=== PATIENT | male | born 1975 | race Caucasian/White ===

== ENCOUNTER 2017-05-22 13:25 | Emergency (ER) | payer OTHER ==
--- NOTE | 2017-05-22 13:29 | PDOC ---
History of Present Illness - General Chief Complaint: Injury Stated Complaint: SWELLING TO RIGHT FOOT Time Seen by Provider: 05/22/17 13:28 History Source: Patient Exam Limitations: No Limitations - History of Present Illness Initial Comments: 05/22/17 13:29 This patient is a 42 yo M with no significant past medical history who presents to the emergency department with a complaint of right foot pain and swelling. Patient states that he has had severe pain with ambulation. Pt states that [place] park with [place] yesterday. He tripped and slid. His toes were caught and his ankle hyperextended Park officials responded, applying ice and telling him to elevate it. Pt states that he elevated his ankle once he got home, took Motrin last night ( which helped minimally) He currently has pain over his instep, no radiation to the heel or ankle Pain is 8/10 Associated with swelling Worse with ambulating or palpation of his foot PMH: denies PSH: cholecystectomy Meds: denies ALL: NKDA Social: denies drug use GENERAL/CONSTITUTIONAL: No: fever, chills, weakness, loss of appetite. MUSCULOSKELETAL: Yes: right foot pain and swwelling No: back pain, neck pain, joint pain, muscle swelling or pain SKIN AND BREASTS: No: lesions, pallor, rash or easy bruising. NEUROLOGIC: No: headache, vertigo, paresthesias, weakness ENDOCRINE: No: unexplained weight gain or loss HEMATOLOGIC/LYMPHATIC: No: anemia, easy bleeding, swelling nodes. GENERAL: The patient is in no acute distress. EXTREMITIES: Ankles non tender (? Swollen) No proximal fibular tenderness Foot swelling Tender over all metatarsals 2+ DP, 2+ PT Foot warm Brisk cap refill rological deficits. MUSCULOSKELETAL: Back non-tender to palpation, no CVA tenderness SKIN: Warm, Dry, normal turgor, no rashes or lesions noted. 05/22/17 13:37 Past History - Past Medical History Allergies/Adverse Reactions: Allergies Allergy/AdvReac Type Severity Reaction Status Date / Time No Known Allergies Allergy Unverified 05/22/17 13:30 Home Medications: Ambulatory Orders Ibuprofen [Motrin -] 600 mg PO TID PRN #21 tablet 05/22/17 Procedures - Splinting Splint Location: Right: Foot Pre-Proc Neuro Vasc Exam: normal Hand-Made Type: orthoglass Splint Type: Yes: Short Leg Post-Proc Neuro Vasc Exam: normal Taco Bandage: yes Complications: No Medical Decision Making - Medical Decision Making 05/22/17 13:54 Injury to right foot yesterday Exam concerning for mid foot fractures Will do: Xray Motrin Will re assess 05/22/17 15:44 x ray read as negative by radiology Pt has a lot of pain and difficulty ambulating Will place in posterior splint ? Occult mid foot injury Will discharge to home Follow up with ortho next week Avoid re injuring foot 05/22/17 15:45 *DC/Admit/Observation/Transfer Diagnosis at time of Disposition: Right foot sprain Qualifiers: Encounter type: initial encounter Qualified Code(s): S93.601A - Unspecified sprain of right foot, initial encounter - Discharge Dispostion Disposition: HOME Condition at time of disposition: Stable Admit: No - Prescriptions Prescriptions: Ibuprofen [Motrin -] 600 mg PO TID PRN #21 tablet PRN Reason: Pain - Referrals Referrals: Jorge Gracia MD [Staff Physician] - - Patient Instructions Printed Discharge Instructions: DI for Foot Sprain, DI for Foot Pain Additional Instructions: Mr Del Real Thank you for coming in to the ER Please avoid placing pressure on your foot Please follow up with the Orthopedic doctor in 2-3 days Please take motrin for pain Elevate your foot Avoid re injuring your foot Return to the ER for any other concerns or complaints Splint can be removed if it is too tight and causes increased pain in your foot (or if you notice the foot is cool, change in sensation, color change) - Post Discharge Activity Work/School Note: Back to Work
[2017-05-22] MEDS ORDERED: IBUPROFEN 600 MG TABLET (FP) PO ONE ×2 (13:33→13:41)
[2017-05-22 13:39] VITALS: BP 123/80; PULSE 87; TEMP 98.8; BMI 34.4
== END 2017-05-22 16:58 | disposition home or self-care (01) ==
LOC: FER 13:25
PROC: 2W3QX1Z Immobilization of Right Lower Leg using Splint (ICD-10-PCS; principal; 2017-05-22)
DX: S93.601A Unspecified sprain of right foot, initial encounter (principal); X58.XXXA Exposure to other specified factors, initial encounter; Y93.89 Activity, other specified; Y92.9 Unspecified place or not applicable
CPT/HCPCS: 73610-TC-RT; 73630-TC-RT; 99281-25

== ENCOUNTER 2017-07-21 15:37 | Emergency (ER) | payer OTHER ==
[2017-07-21 16:03] VITALS: BP 126/70; PULSE 99; BMI 33.6
[2017-07-21] MEDS ORDERED: predniSONE 20 MG TABLET (UD) PO ONE (17:31)
[2017-07-21] MEDS ORDERED: RANITIDINE HCL 150 MG TABLET (FP) PO ONE (17:31)
[2017-07-21] MEDS ORDERED: diphenhydrAMINE HCL 25 MG CAPSULE (FP) PO ONE ×2 (17:31→17:36)
[2017-07-21] MEDS ORDERED: ACETAMINOPHEN 500 MG TABLET (FP) PO ONE (17:32)
[2017-07-21] MEDS ORDERED: RANITIDINE HCL 150 MG TABLET (FP) ONE (17:36)
[2017-07-21] MEDS ORDERED: ACETAMINOPHEN 500 MG TABLET (FP) ONE (17:36)
[2017-07-21] MEDS ORDERED: predniSONE 20 MG TABLET (UD) ONE (17:36)
--- NOTE | 2017-07-21 17:36 | PDOC ---
History of Present Illness - General Chief Complaint: Allergic Reaction Stated Complaint: RASH Time Seen by Provider: 07/21/17 17:11 History Source: Patient Exam Limitations: No Limitations - History of Present Illness Initial Comments: 07/21/17 17:38 Chief complaint: Sudden onset of hives, with chest tightness that started suddenly, severe headache X 5 days History of present illness: Patient is a 42-year-old male with no significant medical history here today with his due to sudden onset of hives that began at approximately 3 PM today 30 minutes after eating a pork chop in his home. Patient reports that the hives spread quickly from arms to torso legs and on his way here patient felt chest tightness with no difficulty swallowing. Patient denies ever having any episodes like this in the past after eating pork chop. Patient denies any new spices, or any new cosmetic products for hair or body or any new clothing or new medications. Rash according to patient and has lessened since arrival here had photos in her phone rash is less raised. She denies any chest tightness or difficulty swallowing presently. Patient also reporting having headache that started on Thursday left occipital area that has persisted daily. Patient reports this as "being the worst headache ever, that wakes being up from a sleep ". Pt denies any nasal congestion, sinus tenderness, cough, nausea vomiting or diarrhea, dizziness, change in vision, or fever. Patient denies any sick contacts or recent travel. Patient reports that headache and left occipital area is presently a 7 out of 10 throbbing in nature. He denies any neck pain or any injuries. Timing/Duration: changing over time Severity: moderate (rash ), severe (headache left occipital ) Associated Symptoms: reports: headaches (daily since 07/17/17 left occipital wakes him from sleep "worse headache ever" ), other (chest tightness) Past History - Past Medical History Allergies/Adverse Reactions: Allergies Allergy/AdvReac Type Severity Reaction Status Date / Time No Known Allergies Allergy Unverified 05/22/17 13:30 Home Medications: Ambulatory Orders Epinephrine (Epi-Pen 0.3MG) [Epipen 0.3MG -] 0.3 mg IM ASDIR PRN #2 pens Prednisone [Deltasone -] 40 mg PO DAILY #8 tablet 07/21/17 Ranitidine [Zantac -] 150 mg PO BID #9 tablet 07/21/17 COPD: No - Surgical History Cholecystectomy: Yes - Suicide/Smoking/Psychosocial Hx Smoking History: Never smoked Hx Alcohol Use: No Drug/Substance Use Hx: No Substance Use Type: None Review of Systems - Review of Systems Able to Perform ROS?: Yes Constitutional: No: Symptoms Reported HEENTM: No: Symptoms Reported Respiratory: No: Symptoms reported Cardiac (ROS): Yes: Chest Tightness (prior to arrival ) ABD/GI: No: Symptoms Reported : No: Symptoms Reported Musculoskeletal: No: Symptoms Reported Integumentary: Yes: Pruritus, Rash (hives generalized ) Neurological: Yes: Headache (left occipital since 07/17/17 "worse headache ever " ) *Physical Exam - Vital Signs Last Vital Signs Temp Pulse Resp BP Pulse Ox 99 H 20 126/70 98 07/21/17 15:55 07/21/17 15:55 07/21/17 15:55 07/21/17 15:55 - Physical Exam General Appearance: Yes: Appropriately Dressed HEENT: positive: EOMI, ROSENDO, Normal ENT Inspection Neck: negative: Lymphadenopathy (R), Lymphadenopathy (L) Respiratory/Chest: positive: Lungs Clear, Normal Breath Sounds. negative: Chest Tender, Respiratory Distress Cardiovascular: positive: Regular Rhythm, Regular Rate, S1, S2 Integumentary: positive: Hives (arms, legs, torso has lessened since arrival here ( had photos rash had been more raised) ) Neurologic: positive: angular developer II-XII NML intact, Fully Oriented, Alert, Normal Response, Responsive, Finger to Nose. negative: Respond to painful stimul Medical Decision Making - Medical Decision Making 07/21/17 17:43 Patient is a 42-year-old male with no significant medical history here today with his due to sudden onset of hives that began at approximately 3 PM today 30 minutes after eating a pork chop in his home. Patient reports that the hives spread quickly from arms to torso legs and on his way here patient felt chest tightness with no difficulty swallowing. Patient denies ever having any episodes like this in the past after eating pork chop. Patient denies any new spices, or any new cosmetic products for hair or body or any new clothing or new medications. Rash according to patient and has lessened since arrival here had photos in her phone rash is less raised. She denies any chest tightness or difficulty swallowing presently. Patient also reporting having headache that started on Thursday left occipital area that has persisted daily. Patient reports this as "being the worst headache ever, that wakes being up from a sleep ". Pt denies any nasal congestion, sinus tenderness, cough, nausea vomiting or diarrhea, dizziness, change in vision, or fever. Patient denies any sick contacts or recent travel. Patient reports that headache and left occipital area is presently a 7 out of 10 throbbing in nature. He denies any neck pain or any injuries. Allergic reaction questionable to food Headache left occipital r/o intracranial abnormality PLAN: prednisone 40 mg po now than daily for following 4 days zantac 150mg po now than bid for following 4 days benadryl 25 mg po now acetaminophen [address] of head without contrast no intracranial pathology noted per Dr. Vasquez 07/21/17 18:37 feeling much better, headaches has resolved, no chest tightness, difficulty breathing or swallowing, rash has resolved *DC/Admit/Observation/Transfer Diagnosis at time of Disposition: Allergic reaction to food Qualifiers: Encounter type: initial encounter Qualified Code(s): T78.1XXA - Other adverse food reactions, not elsewhere classified, initial encounter; T78.1XXA - Other adverse food reactions, not elsewhere classified, initial encounter Headache Qualifiers: Headache type: unspecified Headache chronicity pattern: unspecified pattern Intractability: not intractable Qualified Code(s): R51 - Headache; R51 - Headache - Discharge Dispostion Disposition: HOME Condition at time of disposition: Stable - Prescriptions Prescriptions: Prednisone [Deltasone -] 40 mg PO DAILY #8 tablet Epinephrine (Epi-Pen 0.3MG) [Epipen 0.3MG -] 0.3 mg IM ASDIR PRN #2 pens PRN Reason: Shortness Of Breath Ranitidine [Zantac -] 150 mg PO BID #9 tablet - Patient Instructions Additional Instructions: Take Diphenhydramine (Benadryl)that she may purchase [id number] as directed by civil engineering professional for itchiness Return to emergency room if any difficulty breathing or swallowing or worsening headache or any other symptoms develop Follow-up with your primary care provider within the next few days for further evaluation You may take acetaminophen as directed by civil engineering professional for headache Patient voiced understanding of discharge instructions and all questions were answered Thank you for choosing [facility] emergency room for her medical needs today
== END 2017-07-21 18:44 | disposition home or self-care (01) ==
LOC: JERFT 15:37
DX: L50.0 Allergic urticaria (principal); R51 Headache; T78.40XA Allergy, unspecified, initial encounter; X58.XXXA Exposure to other specified factors, initial encounter
CPT/HCPCS: 70450-TC; 99281-25

== ENCOUNTER 2024-07-25 05:33 | Day surgery (SDC) | payer OTHER ==
[2024-07-21 13:16] VITALS: BMI 34.4
[2024-07-25 08:42] LABS: INR 1.06 (0.83-1.09); PROTHROMBIN TIME (PATIENT) 12.2 SEC (9.7-13.0)
[2024-07-25 08:50] LABS: BASO % 0.3 % (0-2.0); EOS % 1.2 % (0-4.5); HEMATOCRIT 41.2 % (35.4-49); LYMPH % 26.3 % (8-40); MEAN CELL VOLUME 79.3 fl (80-96); MEAN PLT VOLUME 8.8 fl (7.5-11.1); MONO % 7.5 % (3.8-10.2); NEUT % 64.7 % (42.8-82.8); PLATELET COUNT 209 10^3/uL (134-434); RDW 14.5 % (11.9-15.9)
[2024-07-25] MEDS: SODIUM CHLORIDE 500 ML IV ONE (10:05)
[2024-07-25] MEDS ORDERED: MIDAZOLAM HCL 2 MG/2 ML SINGLE DOSE VIAL ONE (10:11)
[2024-07-25] MEDS ORDERED: FENTANYL CITRATE/PF 50 MCG/ML VIAL ONE (10:11)
[2024-07-25] MEDS: FENTANYL CITRATE/PF 50 MCG/ML VIAL IVPUSH ONE (10:37)
[2024-07-25] MEDS: MIDAZOLAM HCL 2 MG/2 ML SINGLE DOSE VIAL IVPUSH ONE (10:37)
[2024-07-25 11:48] VITALS: RESP 20
[2024-07-25] MEDS ORDERED: SODIUM CHLORIDE 500 ML IV SCH (12:30)
[2024-07-25 14:11] VITALS: TEMP 97.8
[2024-07-25 14:13] VITALS: BP 125/66; PULSE 65
== END 2024-07-25 14:16 | disposition home or self-care (01) ==
LOC: JRADIR 05:33
PROVIDERS: ATTEND Internal Medicine Hematology & Oncology
PROC: 02HV33Z Insertion of Infusion Device into Superior Vena Cava, Percutaneous Approach (ICD-10-PCS; principal; 2024-07-25)
PROC: B518ZZA Fluoroscopy of Superior Vena Cava, Guidance (ICD-10-PCS; 2024-07-25)
DX: C18.2 Malignant neoplasm of ascending colon (principal)
CPT/HCPCS: 36561; C1788; 36415; 85025; 85610

== ENCOUNTER 2024-07-27 10:47 | Day surgery (SDC) | payer OTHER ==
[2024-07-27] MEDS: LIDOCAINE 2.5%/PRILOCAINE 2.5% 30 GRAM TUBE TP ONE (11:00)
[2024-07-27] MEDS: SODIUM CHLORIDE 250 ML IV ONE (11:15)
[2024-07-27 11:18] LABS: BASO % 0.3 % (0-2.0); EOS % 1.2 % (0-4.5); HEMATOCRIT 42.3 % (35.4-49); HEMOGLOBIN 14.5 GM/dL (11.7-16.9); LYMPH % 26.7 % (8-40); MCH 27.1 pg (25.7-33.7); MCHC 34.3 g/dl (32.0-35.9); MEAN PLT VOLUME 8.9 fl (7.5-11.1); MONO % 8.2 % (3.8-10.2); NEUT % 63.6 % (42.8-82.8); PLATELET COUNT 220 10^3/uL (134-434); RBC 5.35 M/mm3 (4.00-5.60); RDW 14.6 % (11.9-15.9); WHITE BLOOD COUNT 8.7 K/mm3 (4.0-10.0)
[2024-07-27 11:47] LABS: CHLORIDE 107 mmol/L (98-107); POTASSIUM 3.8 mmol/L (3.5-5.1); SODIUM 141 mmol/L (136-145)
[2024-07-27 11:49] LABS: CALCIUM 9.6 mg/dL (8.5-10.1)
[2024-07-27 11:50] LABS: ANION GAP 4 mmol/L (4-13); BLOOD UREA NITROGEN 18.6 mg/dL (7-18); CO2 30 mmol/L (21-32); GLUCOSE,RANDOM 103 mg/dL (74-106); MAGNESIUM 2.2 mg/dL (1.8-2.4)
[2024-07-27 11:52] LABS: CREATININE 0.9 mg/dL (0.55-1.3); SGOT/AST 22 U/L (15-37); SGPT/ALT 42 U/L (13-61)
[2024-07-27 11:55] LABS: TOT PROT 7.9 g/dl (6.4-8.2)
[2024-07-27] MEDS: DEXAMETHASONE SODIUM PHOSPHATE 10 MG in DEXTROSE 5%-WATER - 50 ML IVPB ONE (11:55)
[2024-07-27 11:56] LABS: ALK PHOS 98 U/L (45-117)
[2024-07-27 12:00] LABS: BILIRUBIN,TOTAL 0.5 mg/dL (0.2-1)
[2024-07-27] MEDS: PALONOSETRON HCL 0.25 MG/5 ML VIAL IVPUSH ONE (12:10)
[2024-07-27] MEDS: WATER IVPB ONE ×2 (12:22→12:37)
[2024-07-27] MEDS: DEXTROSE 5% IVPB ONE ×2 (12:22→12:37)
[2024-07-27] MEDS: DIPHENHYDRAMINE IVPB ONE (12:22)
[2024-07-27] MEDS: LEUCOVORIN CALCIUM IVPB ONE (12:37)
[2024-07-27] MEDS: FLUOROURACIL 1,000 MG/20 ML VIAL IVPUSH ONE (14:50)
[2024-07-27] MEDS: FLUOROURACIL CP ONE (14:53)
[2024-07-27] MEDS: PORTA CATH FLUSH 10 ML IVPUSH PRN (14:53)
[2024-07-27] MEDS: SODIUM CHLORIDE CP ONE (14:53)
[2024-07-27 17:21] VITALS: BP 113/71; PULSE 76; RESP 20; TEMP 98.6
== END 2024-07-27 15:30 | disposition home or self-care (01) ==
LOC: JONCCHEMO 10:47 → J7W 10:52 → JONCCHEMO 15:30
PROVIDERS: ATTEND Internal Medicine Hematology & Oncology
PROC: 3E04305 Introduction of Other Antineoplastic into Central Vein, Percutaneous Approach (ICD-10-PCS; principal; 2024-07-27)
PROC: 3E0433Z Introduction of Anti-inflammatory into Central Vein, Percutaneous Approach (ICD-10-PCS; 2024-07-27)
DX: Z51.11 Encounter for antineoplastic chemotherapy (principal); C18.9 Malignant neoplasm of colon, unspecified
CPT/HCPCS: 36415; 80053; 83735; 85025; 96365; 96375; 96413; 96417; G0498; J9263

== ENCOUNTER 2024-08-10 10:32 | Day surgery (SDC) | payer OTHER ==
[2024-08-10] MEDS: PORTA CATH FLUSH 10 ML IVPUSH PRN (11:00)
[2024-08-10] MEDS: SODIUM CHLORIDE 250 ML IV ONE (11:15)
[2024-08-10 12:02] LABS: BASO % 0.5 % (0-2.0); EOS % 2.2 % (0-4.5); HEMATOCRIT 39.4 % (35.4-49); HEMOGLOBIN 13.7 GM/dL (11.7-16.9); LYMPH % 30.5 % (8-40); MCH 27.1 pg (25.7-33.7); MCHC 34.8 g/dl (32.0-35.9); MEAN CELL VOLUME 77.8 fl (80-96); MEAN PLT VOLUME 8.2 fl (7.5-11.1); MONO % 12.8 % (3.8-10.2); PLATELET COUNT 173 10^3/uL (134-434); RBC 5.06 M/mm3 (4.00-5.60); RDW 14.5 % (11.9-15.9); WHITE BLOOD COUNT 4.8 K/mm3 (4.0-10.0)
[2024-08-10 12:09] LABS: CHLORIDE 107 mmol/L (98-107); POTASSIUM 3.4 mmol/L (3.5-5.1); SODIUM 139 mmol/L (136-145)
[2024-08-10 12:10] LABS: CALCIUM 9.4 mg/dL (8.5-10.1)
[2024-08-10 12:11] LABS: ALBUMIN 3.6 g/dl (3.4-5.0); ANION GAP 6 mmol/L (4-13); BLOOD UREA NITROGEN 10.7 mg/dL (7-18); CO2 26 mmol/L (21-32); GLUCOSE,RANDOM 107 mg/dL (74-106); MAGNESIUM 2.2 mg/dL (1.8-2.4)
[2024-08-10 12:14] LABS: CREATININE 0.9 mg/dL (0.55-1.3); SGOT/AST 21 U/L (15-37); SGPT/ALT 47 U/L (13-61)
[2024-08-10 12:16] LABS: BILIRUBIN,TOTAL 0.6 mg/dL (0.2-1); TOT PROT 7.4 g/dl (6.4-8.2)
[2024-08-10 12:17] LABS: ALK PHOS 98 U/L (45-117)
[2024-08-10] MEDS: DEXAMETHASONE SODIUM PHOSPHATE 10 MG, DIPHENHYDRAMINE 25 MG in SODIUM CHLORIDE 100 ML IVPB ONE (12:33)
[2024-08-10] MEDS: PALONOSETRON HCL 0.25 MG/5 ML VIAL IVPUSH ONE (12:52)
[2024-08-10] MEDS: WATER IVPB ONE (13:22)
[2024-08-10] MEDS: DEXTROSE 5% IVPB ONE (13:22)
[2024-08-10] MEDS: LEUCOVORIN CALCIUM IVPB ONE (13:22)
[2024-08-10] MEDS: FLUOROURACIL 1,000 MG/20 ML VIAL IVPUSH ONE (15:49)
[2024-08-10] MEDS: FLUOROURACIL CP ONE (15:50)
[2024-08-10] MEDS: SODIUM CHLORIDE CP ONE (15:50)
[2024-08-10 16:57] VITALS: BP 106/69; PULSE 73; RESP 20; TEMP 98.9
== END 2024-08-10 16:05 | disposition home or self-care (01) ==
LOC: JONCCHEMO 10:32 → J7W 10:33 → JONCCHEMO 16:05
PROVIDERS: ATTEND Internal Medicine Hematology & Oncology
DX: Z51.11 Encounter for antineoplastic chemotherapy (principal); C18.2 Malignant neoplasm of ascending colon
CPT/HCPCS: 36415; 80053; 83735; 85025; 96413; 96415; G0498; J9263

== ENCOUNTER 2024-08-12 13:42 | Day surgery (SDC) | payer OTHER ==
[2024-08-12] MEDS: DEXTROSE 5%-NORMAL SALINE 500 ML IV ONE (13:35)
[2024-08-12 13:44] VITALS: PULSE 67; RESP 20; TEMP 98.3
[2024-08-12] MEDS: PORTA CATH FLUSH 10 ML IVPUSH PRN (15:45)
[2024-08-12 16:06] VITALS: BP 102/68
== END 2024-08-12 15:45 | disposition home or self-care (01) ==
LOC: JONCCHEMO 13:42
PROVIDERS: ATTEND Internal Medicine Hematology & Oncology
PROC: 3E0437Z Introduction of Electrolytic and Water Balance Substance into Central Vein, Percutaneous Approach (ICD-10-PCS; principal; 2024-08-12)
DX: C18.9 Malignant neoplasm of colon, unspecified (principal); Z76.89 Persons encountering health services in other specified circumstances
CPT/HCPCS: 96360; 96361

== ENCOUNTER 2024-08-23 10:26 | Day surgery (SDC) | payer OTHER ==
[2024-08-23] MEDS: SODIUM CHLORIDE 250 ML IV ONE (11:10)
[2024-08-23 11:30] LABS: BASO % 0.5 % (0-2.0); HEMATOCRIT 40.8 % (35.4-49); HEMOGLOBIN 13.6 GM/dL (11.7-16.9); LYMPH % 29.3 % (8-40); MCH 26.8 pg (25.7-33.7); MCHC 33.4 g/dl (32.0-35.9); MEAN CELL VOLUME 80.2 fl (80-96); MEAN PLT VOLUME 7.9 fl (7.5-11.1); MONO % 9.5 % (3.8-10.2); NEUT % 58.7 % (42.8-82.8); PLATELET COUNT 155 10^3/uL (134-434); RBC 5.09 M/mm3 (4.00-5.60); RDW 15.2 % (11.9-15.9); WHITE BLOOD COUNT 4.4 K/mm3 (4.0-10.0)
[2024-08-23 12:29] LABS: POTASSIUM 3.6 mmol/L (3.5-5.1)
[2024-08-23 12:31] LABS: ALBUMIN 3.6 g/dl (3.4-5.0); CALCIUM 8.7 mg/dL (8.5-10.1)
[2024-08-23 12:32] LABS: BLOOD UREA NITROGEN 9.9 mg/dL (7-18); MAGNESIUM 2.1 mg/dL (1.8-2.4)
[2024-08-23 12:35] LABS: CREATININE 0.9 mg/dL (0.55-1.3)
[2024-08-23 12:36] LABS: BILIRUBIN,TOTAL 0.5 mg/dL (0.2-1); TOT PROT 7.1 g/dl (6.4-8.2)
[2024-08-23] MEDS: PALONOSETRON HCL 0.25 MG/5 ML VIAL IVPUSH ONE (12:40)
[2024-08-23] MEDS: DEXAMETHASONE SODIUM PHOSPHATE 10 MG, DIPHENHYDRAMINE 25 MG in SODIUM CHLORIDE 100 ML IVPB ONE (12:41)
[2024-08-23] MEDS: WATER IVPB ONE (13:47)
[2024-08-23] MEDS: LEUCOVORIN CALCIUM IVPB ONE (13:47)
[2024-08-23] MEDS: DEXTROSE 5% IVPB ONE (13:47)
[2024-08-23] MEDS: SODIUM CHLORIDE CP ONE (16:04)
[2024-08-23] MEDS: FLUOROURACIL 1,000 MG/20 ML VIAL IVPUSH ONE (16:04)
[2024-08-23] MEDS: FLUOROURACIL CP ONE (16:04)
[2024-08-23] MEDS: PORTA CATH FLUSH 10 ML IVPUSH PRN (16:15)
[2024-08-23 17:42] VITALS: RESP 20; TEMP 98.7
[2024-08-23 17:52] VITALS: BP 116/75; PULSE 78
== END 2024-08-23 16:15 | disposition home or self-care (01) ==
LOC: JONCCHEMO 10:26 → J7W 10:27 → JONCCHEMO 16:15
PROVIDERS: ATTEND Internal Medicine Hematology & Oncology
PROC: 3E04305 Introduction of Other Antineoplastic into Central Vein, Percutaneous Approach (ICD-10-PCS; principal; 2024-08-23)
PROC: 3E04305 Introduction of Other Antineoplastic into Central Vein, Percutaneous Approach (ICD-10-PCS; 2024-08-23)
PROC: 3E0437Z Introduction of Electrolytic and Water Balance Substance into Central Vein, Percutaneous Approach (ICD-10-PCS; 2024-08-23)
PROC: 3E043GC Introduction of Other Therapeutic Substance into Central Vein, Percutaneous Approach (ICD-10-PCS; 2024-08-23)
DX: Z51.11 Encounter for antineoplastic chemotherapy (principal); C18.9 Malignant neoplasm of colon, unspecified
CPT/HCPCS: 36415; 80053; 83735; 85025; 96366; 96367; 96375; 96413; 96415; G0498; J9263

== ENCOUNTER 2024-08-25 14:35 | Day surgery (SDC) | payer OTHER ==
[2024-08-25] MEDS: DEXTROSE 5%-NORMAL SALINE 500 ML IV ONE (14:24)
[2024-08-25] MEDS: PORTA CATH FLUSH 10 ML IVPUSH PRN (16:30)
[2024-08-25 16:31] VITALS: BP 90/62; RESP 18; TEMP 98.8
[2024-08-26 08:18] VITALS: PULSE 69
== END 2024-08-25 16:30 | disposition home or self-care (01) ==
LOC: JONCCHEMO 14:35 → J7W 14:35 → JONCCHEMO 16:30
PROVIDERS: ATTEND Internal Medicine Hematology & Oncology
PROC: 3E0337Z Introduction of Electrolytic and Water Balance Substance into Peripheral Vein, Percutaneous Approach (ICD-10-PCS; principal; 2024-08-25)
DX: Z76.89 Persons encountering health services in other specified circumstances (principal); C18.9 Malignant neoplasm of colon, unspecified
CPT/HCPCS: 96360; 96361

== ENCOUNTER 2024-09-07 10:14 | Day surgery (SDC) | payer OTHER ==
[2024-09-07] MEDS: SODIUM CHLORIDE 250 ML IV ONE (10:30)
[2024-09-07 10:48] LABS: BASO % 0.5 % (0-2.0); EOS % 1.1 % (0-4.5); HEMATOCRIT 40.5 % (35.4-49); HEMOGLOBIN 13.8 GM/dL (11.7-16.9); LYMPH % 42.3 % (8-40); MCH 27.1 pg (25.7-33.7); MCHC 34.2 g/dl (32.0-35.9); MEAN CELL VOLUME 79.3 fl (80-96); MONO % 19.6 % (3.8-10.2); NEUT % 36.5 % (42.8-82.8); PLATELET COUNT 122 10^3/uL (134-434); RDW 16.2 % (11.9-15.9); WHITE BLOOD COUNT 3.1 K/mm3 (4.0-10.0)
[2024-09-07 11:16] LABS: POTASSIUM 3.3 mmol/L (3.5-5.1)
[2024-09-07 11:19] LABS: ALBUMIN 3.4 g/dl (3.4-5.0); BLOOD UREA NITROGEN 8.7 mg/dL (7-18)
[2024-09-07 11:22] LABS: CREATININE 0.9 mg/dL (0.55-1.3)
[2024-09-07 11:23] LABS: BILIRUBIN,TOTAL 0.5 mg/dL (0.2-1); TOT PROT 6.8 g/dl (6.4-8.2)
[2024-09-07] MEDS: DEXAMETHASONE SODIUM PHOSPHATE 10 MG, DIPHENHYDRAMINE 25 MG in SODIUM CHLORIDE 100 ML IVPB ONE (11:50)
[2024-09-07] MEDS: OLANZapine 5 MG TABLET PO ONE (12:26)
[2024-09-07] MEDS: PALONOSETRON HCL 0.25 MG/5 ML VIAL IVPUSH ONE (12:26)
[2024-09-07] MEDS ORDERED: FLUOROURACIL 1,000 MG/20 ML VIAL IVPUSH ONE (12:30)
[2024-09-07] MEDS: WATER IVPB ONE (12:31)
[2024-09-07] MEDS: DEXTROSE 5% IVPB ONE (12:31)
[2024-09-07] MEDS: LEUCOVORIN CALCIUM IVPB ONE (12:31)
[2024-09-07] MEDS ORDERED: POTASSIUM CHLORIDE TABS 20 MEQ TABLET.ER (FP) PO ONE (12:45)
[2024-09-07] MEDS ORDERED: SODIUM CHLORIDE CP ONE (12:45)
[2024-09-07] MEDS ORDERED: FLUOROURACIL CP ONE (12:45)
[2024-09-07] MEDS: CYANOCOBALAMIN (VITAMIN B-12) 1000 MCG/1 ML VIAL IM ONE (15:05)
[2024-09-07] MEDS: PORTA CATH FLUSH 10 ML IVPUSH PRN (15:06)
[2024-09-07] MEDS: FLUOROURACIL 4,500 MG in SODIUM CHLORIDE 2 ML CP ONE (15:06)
[2024-09-07] MEDS: POTASSIUM CHLORIDE TABS 20 MEQ TABLET.ER (FP) PO ONE (15:10)
[2024-09-07 15:55] VITALS: BP 113/75; PULSE 77; RESP 20; TEMP 98.9
== END 2024-09-07 15:25 | disposition home or self-care (01) ==
LOC: J7W 10:14 → JONCCHEMO 10:14
PROVIDERS: ATTEND Internal Medicine Hematology & Oncology
DX: Z51.11 Encounter for antineoplastic chemotherapy (principal); C18.2 Malignant neoplasm of ascending colon
CPT/HCPCS: 36415; 80053; 83735; 85025; 96368; 96375; 96413; G0498; J9263

== ENCOUNTER 2024-09-09 11:45 | Day surgery (SDC) | payer OTHER ==
[2024-09-09] MEDS: DEXTROSE 5%-NORMAL SALINE 500 ML IV ONE (11:52)
[2024-09-09] MEDS: PORTA CATH FLUSH 10 ML IVPUSH PRN (14:00)
[2024-09-09 17:21] VITALS: PULSE 69; RESP 16; TEMP 98.4
[2024-09-09 17:41] VITALS: BP 108/66
== END 2024-09-09 14:00 | disposition home or self-care (01) ==
LOC: JONCCHEMO 11:45 → J7W 11:46 → JONCCHEMO 14:00
PROVIDERS: ATTEND Internal Medicine Hematology & Oncology
PROC: 3E043GC Introduction of Other Therapeutic Substance into Central Vein, Percutaneous Approach (ICD-10-PCS; principal; 2024-09-09)
DX: C18.2 Malignant neoplasm of ascending colon (principal); Z76.89 Persons encountering health services in other specified circumstances

== ENCOUNTER 2024-09-12 14:50 | Day surgery (SDC) | payer OTHER ==
[2024-09-12] MEDS: TBO-FILGRASTIM 480 MCG/0.8 ML DISP.SYRIN SQ ONE (14:52)
[2024-09-12 15:36] VITALS: BP 130/93; PULSE 79; RESP 18; TEMP 97.7
== END 2024-09-12 15:15 | disposition home or self-care (01) ==
LOC: JONCCHEMO 14:50
PROVIDERS: ATTEND Internal Medicine Hematology & Oncology
PROC: 3E013GC Introduction of Other Therapeutic Substance into Subcutaneous Tissue, Percutaneous Approach (ICD-10-PCS; principal; 2024-09-12)
DX: C18.2 Malignant neoplasm of ascending colon (principal); Z76.89 Persons encountering health services in other specified circumstances
CPT/HCPCS: 96372; J1447

== ENCOUNTER 2024-09-13 15:43 | Day surgery (SDC) | payer OTHER ==
[2024-09-13] MEDS: TBO-FILGRASTIM 480 MCG/0.8 ML DISP.SYRIN SQ ONE (14:48)
[2024-09-13 17:33] VITALS: BP 113/94; PULSE 94; RESP 18; TEMP 98.2
== END 2024-09-13 15:45 | disposition home or self-care (01) ==
LOC: J7W 15:43 → JONCCHEMO 15:43
PROVIDERS: ATTEND Internal Medicine Hematology & Oncology
PROC: 3E013GC Introduction of Other Therapeutic Substance into Subcutaneous Tissue, Percutaneous Approach (ICD-10-PCS; principal; 2024-09-13)
DX: C18.2 Malignant neoplasm of ascending colon (principal); Z76.89 Persons encountering health services in other specified circumstances
CPT/HCPCS: 96372; J1447

== ENCOUNTER 2024-09-20 10:20 | Day surgery (SDC) | payer OTHER ==
[2024-09-20 11:27] LABS: BASO % 0.5 % (0-2.0); EOS % 0.9 % (0-4.5); HEMATOCRIT 39.7 % (35.4-49); HEMOGLOBIN 13.7 GM/dL (11.7-16.9); LYMPH % 31.1 % (8-40); MCH 27.3 pg (25.7-33.7); MCHC 34.6 g/dl (32.0-35.9); MEAN CELL VOLUME 78.8 fl (80-96); MEAN PLT VOLUME 8.8 fl (7.5-11.1); NEUT % 50.5 % (42.8-82.8); PLATELET COUNT 97 10^3/uL (134-434); RBC 5.03 M/mm3 (4.00-5.60); RDW 17.3 % (11.9-15.9); WHITE BLOOD COUNT 4.5 K/mm3 (4.0-10.0)
[2024-09-20] MEDS: SODIUM CHLORIDE 250 ML IV ONE (11:28)
[2024-09-20 11:42] LABS: POTASSIUM 3.4 mmol/L (3.5-5.1)
[2024-09-20 11:45] LABS: ALBUMIN 3.5 g/dl (3.4-5.0); CALCIUM 8.8 mg/dL (8.5-10.1)
[2024-09-20 11:46] LABS: BLOOD UREA NITROGEN 7.4 mg/dL (7-18); MAGNESIUM 2.2 mg/dL (1.8-2.4)
[2024-09-20 11:49] LABS: CREATININE 0.8 mg/dL (0.55-1.3)
[2024-09-20 11:50] LABS: BILIRUBIN,TOTAL 0.5 mg/dL (0.2-1); TOT PROT 7.3 g/dl (6.4-8.2)
[2024-09-20] MEDS: DEXAMETHASONE SODIUM PHOSPHATE 10 MG, DIPHENHYDRAMINE 25 MG in SODIUM CHLORIDE 100 ML IVPB ONE (12:01)
[2024-09-20] MEDS: PALONOSETRON HCL 0.25 MG/5 ML VIAL IVPUSH ONE (12:48)
[2024-09-20] MEDS: LEUCOVORIN IVPB ONE (12:49)
[2024-09-20] MEDS: WATER IVPB ONE (12:49)
[2024-09-20] MEDS: DEXTROSE 5% IVPB ONE (12:49)
[2024-09-20] MEDS: POTASSIUM CHLORIDE TABS 20 MEQ TABLET.ER (FP) PO ONE (14:00)
[2024-09-20] MEDS: FLUOROURACIL CP ONE (15:35)
[2024-09-20] MEDS: FLUOROURACIL 1,000 MG/20 ML VIAL IVPUSH ONE (15:35)
[2024-09-20] MEDS: SODIUM CHLORIDE CP ONE (15:35)
[2024-09-20 17:37] VITALS: TEMP 98.1
[2024-09-20 17:48] VITALS: BP 131/82; PULSE 79; RESP 18
[2024-09-20] MEDS ORDERED: PORTA CATH FLUSH 10 ML IVPUSH PRN (17:48)
== END 2024-09-20 16:00 | disposition home or self-care (01) ==
LOC: JONCCHEMO 10:20 → J7W 10:21 → JONCCHEMO 16:00
PROVIDERS: ATTEND Internal Medicine Hematology & Oncology
DX: Z51.11 Encounter for antineoplastic chemotherapy (principal); C18.2 Malignant neoplasm of ascending colon
CPT/HCPCS: 36415; 80053; 83735; 85025; 96367; 96368; 96375; 96411; 96413; 96415; G0498; J9263

== ENCOUNTER 2024-09-22 13:13 | Day surgery (SDC) | payer OTHER ==
[2024-09-22] MEDS: DEXTROSE 5%-NORMAL SALINE 500 ML IV ONE (13:11)
[2024-09-22] MEDS: PORTA CATH FLUSH 10 ML IVPUSH PRN (15:45)
[2024-09-22 17:28] VITALS: TEMP 98.1
[2024-09-22 17:33] VITALS: BP 117/73; PULSE 68; RESP 16
== END 2024-09-22 15:45 | disposition home or self-care (01) ==
LOC: JONCCHEMO 13:13 → J7W 13:17 → JONCCHEMO 15:45
PROVIDERS: ATTEND Internal Medicine Hematology & Oncology
PROC: 3E0437Z Introduction of Electrolytic and Water Balance Substance into Central Vein, Percutaneous Approach (ICD-10-PCS; principal; 2024-09-22)
DX: C18.2 Malignant neoplasm of ascending colon (principal); Z76.89 Persons encountering health services in other specified circumstances
CPT/HCPCS: 96360; 96361

== ENCOUNTER 2024-10-05 10:53 | Day surgery (SDC) | payer OTHER ==
[2024-10-05] MEDS: SODIUM CHLORIDE 250 ML IV ONE (11:07)
[2024-10-05 11:27] LABS: BASO % 0.4 % (0-2.0); EOS % 1.8 % (0-4.5); HEMATOCRIT 41.6 % (35.4-49); HEMOGLOBIN 13.5 GM/dL (11.7-16.9); LYMPH % 35.8 % (8-40); MCH 26.6 pg (25.7-33.7); MCHC 32.5 g/dl (32.0-35.9); MEAN PLT VOLUME 8.1 fl (7.5-11.1); MONO % 19.9 % (3.8-10.2); NEUT % 42.1 % (42.8-82.8); PLATELET COUNT 150 10^3/uL (134-434); RBC 5.07 M/mm3 (4.00-5.60); RDW 18.5 % (11.9-15.9); WHITE BLOOD COUNT 4.3 K/mm3 (4.0-10.0)
[2024-10-05 11:43] LABS: CHLORIDE 108 mmol/L (98-107); POTASSIUM 3.9 mmol/L (3.5-5.1); SODIUM 140 mmol/L (136-145)
[2024-10-05 11:47] LABS: ALBUMIN 3.4 g/dl (3.4-5.0); ANION GAP 4 mmol/L (4-13); BLOOD UREA NITROGEN 11.5 mg/dL (7-18); CO2 27 mmol/L (21-32); GLUCOSE,RANDOM 107 mg/dL (74-106); MAGNESIUM 2.1 mg/dL (1.8-2.4)
[2024-10-05 11:49] LABS: CREATININE 0.9 mg/dL (0.55-1.3); SGOT/AST 33 U/L (15-37)
[2024-10-05 11:50] LABS: BILIRUBIN,TOTAL 0.5 mg/dL (0.2-1)
[2024-10-05 11:51] LABS: SGPT/ALT 42 U/L (13-61); TOT PROT 7.3 g/dl (6.4-8.2)
[2024-10-05 11:52] LABS: ALK PHOS 127 U/L (45-117)
[2024-10-05] MEDS: PALONOSETRON HCL 0.25 MG/5 ML VIAL IVPUSH ONE (12:27)
[2024-10-05] MEDS: DEXAMETHASONE SODIUM PHOSPHATE 10 MG, DIPHENHYDRAMINE 25 MG in SODIUM CHLORIDE 100 ML IVPB ONE (12:33)
[2024-10-05] MEDS: LEUCOVORIN IVPB ONE (13:24)
[2024-10-05] MEDS: DEXTROSE 5% IVPB ONE (13:24)
[2024-10-05] MEDS: WATER IVPB ONE (13:24)
[2024-10-05] MEDS: FLUOROURACIL CP ONE (15:41)
[2024-10-05] MEDS: FLUOROURACIL 1,000 MG/20 ML VIAL IVPUSH ONE (15:41)
[2024-10-05] MEDS: SODIUM CHLORIDE CP ONE (15:41)
[2024-10-05 16:04] VITALS: TEMP 98.1
[2024-10-05] MEDS ORDERED: PORTA CATH FLUSH 10 ML IVPUSH PRN (17:20)
[2024-10-05 17:21] VITALS: BP 124/82; PULSE 85; RESP 20
== END 2024-10-05 15:50 | disposition home or self-care (01) ==
LOC: JONCCHEMO 10:53
PROVIDERS: ATTEND Internal Medicine Hematology & Oncology
PROC: 3E04305 Introduction of Other Antineoplastic into Central Vein, Percutaneous Approach (ICD-10-PCS; principal; 2024-10-05)
PROC: 3E043GC Introduction of Other Therapeutic Substance into Central Vein, Percutaneous Approach (ICD-10-PCS; 2024-10-05)
DX: Z51.11 Encounter for antineoplastic chemotherapy (principal); C18.2 Malignant neoplasm of ascending colon
CPT/HCPCS: 36415; 80053; 83735; 85025; 96375; 96411; 96413; 96417; G0498; J9263

== ENCOUNTER 2024-10-07 14:07 | Day surgery (SDC) | payer OTHER ==
[2024-10-07] MEDS: DEXTROSE 5%-NORMAL SALINE 500 ML IV ONE (13:39)
[2024-10-07] MEDS: DEXAMETHASONE SODIUM PHOSPHATE 4 MG in SODIUM CHLORIDE 50 ML IVPB ONE (13:40)
[2024-10-07] MEDS: PORTA CATH FLUSH 10 ML IVPUSH PRN (15:45)
[2024-10-07 18:30] VITALS: TEMP 98.1
[2024-10-07 18:34] VITALS: BP 140/74; PULSE 61; RESP 18
== END 2024-10-07 15:50 | disposition home or self-care (01) ==
LOC: JONCCHEMO 14:07 → J7W 14:09 → JONCCHEMO 15:50
PROVIDERS: ATTEND Internal Medicine Hematology & Oncology
PROC: 3E043GC Introduction of Other Therapeutic Substance into Central Vein, Percutaneous Approach (ICD-10-PCS; principal; 2024-10-07)
DX: C18.2 Malignant neoplasm of ascending colon (principal)

== ENCOUNTER 2024-10-09 19:07 | Emergency (ER) | payer OTHER ==
[2024-10-09 19:26] VITALS: BP 129/78; PULSE 89; RESP 18; TEMP 99.5; BMI 34.4
[2024-10-09] MEDS ORDERED: ACETAMINOPHEN INJECTION 100 ML ONE ×2 (20:41→23:45)
[2024-10-09] MEDS ORDERED: ONDANSETRON 4 MG/2 ML VIAL ONE (20:41)
[2024-10-09 21:14] LABS: BASO % 0.3 % (0-2.0); EOS % 2.4 % (0-4.5); HEMOGLOBIN 14.2 GM/dL (11.7-16.9); LYMPH % 22.7 % (8-40); MCH 27.2 pg (25.7-33.7); MCHC 33.9 g/dl (32.0-35.9); MEAN CELL VOLUME 80.2 fl (80-96); MEAN PLT VOLUME 8.2 fl (7.5-11.1); MONO % 7.5 % (3.8-10.2); NEUT % 67.1 % (42.8-82.8); PLATELET COUNT 160 10^3/uL (134-434); RBC 5.23 M/mm3 (4.00-5.60); RDW 18.8 % (11.9-15.9); WHITE BLOOD COUNT 3.7 K/mm3 (4.0-10.0)
[2024-10-09] MEDS: ONDANSETRON 4 MG/2 ML VIAL IVPUSH ONE (21:14)
[2024-10-09] MEDS: ACETAMINOPHEN 1000 MG/100 ML BAG IVPB ONE (21:14)
[2024-10-09] MEDS: SODIUM CHLORIDE 1,000 ML IV STA (21:14)
[2024-10-09 21:20] LABS: VENOUS BASE EXCESS -0.1 mmol/L (-2-2); VENOUS O2 SATURATION 95.8 % (70-80); VENOUS PCO2 31.1 mmHg (38-52); VENOUS PH 7.476 (7.310-7.410)
[2024-10-09 21:33] LABS: POTASSIUM 3.4 mmol/L (3.5-5.1)
[2024-10-09 21:36] LABS: ALBUMIN 3.4 g/dl (3.4-5.0); BLOOD UREA NITROGEN 9.2 mg/dL (7-18); CALCIUM 8.4 mg/dL (8.5-10.1)
[2024-10-09 21:39] LABS: CREATININE 0.7 mg/dL (0.55-1.3)
[2024-10-09 21:41] LABS: TOT PROT 7.3 g/dl (6.4-8.2)
[2024-10-09] MEDS ORDERED: POTASSIUM CHLORIDE TABS 20 MEQ TABLET.ER (FP) PO ONE (22:01)
[2024-10-09] MEDS: POTASSIUM CHLORIDE TABS 20 MEQ TABLET.ER (FP) PO ONE (22:07)
[2024-10-09] MEDS ORDERED: ACETAMINOPHEN 1000 MG/100 ML BAG IVPB ONE (23:30)
== END 2024-10-10 00:19 | disposition home or self-care (01) ==
LOC: JER 19:07
PROC: 3E033NZ Introduction of Analgesics, Hypnotics, Sedatives into Peripheral Vein, Percutaneous Approach (ICD-10-PCS; principal; 2024-10-09)
PROC: 3E033GC Introduction of Other Therapeutic Substance into Peripheral Vein, Percutaneous Approach (ICD-10-PCS; 2024-10-09)
PROC: 3E0337Z Introduction of Electrolytic and Water Balance Substance into Peripheral Vein, Percutaneous Approach (ICD-10-PCS; 2024-10-09)
DX: J10.1 Influenza due to other identified influenza virus with other respiratory manifestations (principal); R05.1 Acute cough; R50.9 Fever, unspecified; R11.2 Nausea with vomiting, unspecified; Z20.822 Contact with and (suspected) exposure to COVID-19
CPT/HCPCS: 0241U-QW; 36415; 71046-TC-FY; 80053; 82803; 83605; 84484; 85025; 87040; 93005; 93010; 99285-25; J0131

== ENCOUNTER 2024-11-09 13:07 | Day surgery (SDC) | payer OTHER ==
[2024-11-09] MEDS: SODIUM CHLORIDE 250 ML IV ONE (12:31)
[2024-11-09 13:01] LABS: ALBUMIN 3.4 g/dl (3.4-5.0); CHLORIDE 106 mmol/L (98-107); POTASSIUM 3.5 mmol/L (3.5-5.1); SODIUM 138 mmol/L (136-145)
[2024-11-09 13:02] LABS: BLOOD UREA NITROGEN 8.7 mg/dL (7-18); CALCIUM 9.2 mg/dL (8.5-10.1)
[2024-11-09 13:03] LABS: ANION GAP 5 mmol/L (4-13); CO2 28 mmol/L (21-32); GLUCOSE,RANDOM 113 mg/dL (74-106)
[2024-11-09 13:05] LABS: CREATININE 0.7 mg/dL (0.55-1.3); IRON SERUM 93 ug/dL (50-175); SGOT/AST 49 U/L (15-37); SGPT/ALT 45 U/L (13-61); TOTAL IRON BINDING CAPACITY 382 ug/dL (250-450)
[2024-11-09 13:09] LABS: ALK PHOS 102 U/L (45-117); BILIRUBIN,TOTAL 0.5 mg/dL (0.2-1); HEMATOCRIT 40.1 % (35.4-49); HEMOGLOBIN 13.3 GM/dL (11.7-16.9); MCH 27.7 pg (25.7-33.7); MCHC 33.1 g/dl (32.0-35.9); MEAN CELL VOLUME 83.5 fl (80-96); MEAN PLT VOLUME 8.7 fl (7.5-11.1); PLATELET COUNT 184 10^3/uL (134-434); RBC 4.81 M/mm3 (4.00-5.60); RDW 18.7 % (11.9-15.9); TOT PROT 7.5 g/dl (6.4-8.2); WHITE BLOOD COUNT 7.6 K/mm3 (4.0-10.0)
[2024-11-09] MEDS: PALONOSETRON HCL 0.25 MG/5 ML VIAL IVPUSH ONE (14:23)
[2024-11-09] MEDS: DEXAMETHASONE SODIUM PHOSPHATE 10 MG, DIPHENHYDRAMINE 25 MG in SODIUM CHLORIDE 100 ML IVPB ONE (14:23)
[2024-11-09] MEDS: WATER IVPB ONE (14:55)
[2024-11-09] MEDS: DEXTROSE 5% IVPB ONE (14:55)
[2024-11-09] MEDS: LEUCOVORIN IVPB ONE (14:55)
[2024-11-09 17:05] VITALS: TEMP 98.2
[2024-11-09] MEDS: FLUOROURACIL CP ONE (17:34)
[2024-11-09] MEDS: SODIUM CHLORIDE CP ONE (17:34)
[2024-11-09] MEDS: FLUOROURACIL 1,000 MG/20 ML VIAL IVPUSH ONE (17:34)
[2024-11-09] MEDS: PORTA CATH FLUSH 10 ML IVPUSH PRN (17:48)
[2024-11-09 17:56] VITALS: BP 131/84; PULSE 87; RESP 20
== END 2024-11-09 18:02 | disposition home or self-care (01) ==
LOC: JONCCHEMO 13:07
PROVIDERS: ATTEND Internal Medicine Hematology & Oncology
DX: Z51.11 Encounter for antineoplastic chemotherapy (principal); C18.9 Malignant neoplasm of colon, unspecified
CPT/HCPCS: 36415; 80053; 82728; 83540; 83550; 83735; 85025; 96367; 96409; 96413; 96415; G0498; J9263

== ENCOUNTER 2024-11-11 11:30 | Day surgery (SDC) | payer OTHER ==
[~2024-11-11 11:30] MED LIST: SODIUM CHLORIDE 500 ML IV ONE
[2024-11-11] MEDS: POTASSIUM CHLORIDE 20 MEQ in SODIUM CHLORIDE 500 ML IV ONE (12:30)
[2024-11-11 15:28] VITALS: RESP 18; TEMP 98.3
[2024-11-11 15:40] VITALS: BP 110/71; PULSE 75
[2024-11-11] MEDS: PORTA CATH FLUSH 10 ML IVPUSH PRN (15:45)
== END 2024-11-11 15:54 | disposition home or self-care (01) ==
LOC: JONCCHEMO 11:30
PROVIDERS: ATTEND Internal Medicine Hematology & Oncology
PROC: 3E043GC Introduction of Other Therapeutic Substance into Central Vein, Percutaneous Approach (ICD-10-PCS; principal; 2024-11-11)
DX: C18.9 Malignant neoplasm of colon, unspecified (principal); Z76.89 Persons encountering health services in other specified circumstances
CPT/HCPCS: 96365

== ENCOUNTER 2024-11-23 10:39 | Day surgery (SDC) | payer OTHER ==
[2024-11-23 11:20] LABS: BASO % 0.3 % (0-2.0); EOS % 1.6 % (0-4.5); HEMOGLOBIN 13.4 GM/dL (11.7-16.9); MCH 28.3 pg (25.7-33.7); MCHC 34.3 g/dl (32.0-35.9); MEAN CELL VOLUME 82.4 fl (80-96); MEAN PLT VOLUME 8.3 fl (7.5-11.1); MONO % 13.5 % (3.8-10.2); NEUT % 58.6 % (42.8-82.8); PLATELET COUNT 95 10^3/uL (134-434); RBC 4.74 M/mm3 (4.00-5.60); RDW 17.6 % (11.9-15.9); WHITE BLOOD COUNT 4.9 K/mm3 (4.0-10.0)
[2024-11-23 11:56] LABS: POTASSIUM 3.4 mmol/L (3.5-5.1)
[2024-11-23 12:00] LABS: ALBUMIN 3.4 g/dl (3.4-5.0); CALCIUM 8.8 mg/dL (8.5-10.1)
[2024-11-23 12:01] LABS: BLOOD UREA NITROGEN 7.6 mg/dL (7-18); MAGNESIUM 2.2 mg/dL (1.8-2.4)
[2024-11-23 12:04] LABS: CREATININE 0.7 mg/dL (0.55-1.3)
[2024-11-23 12:05] LABS: BILIRUBIN,TOTAL 0.5 mg/dL (0.2-1); TOT PROT 7.4 g/dl (6.4-8.2)
[2024-11-23] MEDS: SODIUM CHLORIDE 250 ML IV ONE (12:21)
[2024-11-23] MEDS: DEXAMETHASONE SODIUM PHOSPHATE 10 MG, DIPHENHYDRAMINE 25 MG in SODIUM CHLORIDE 100 ML IVPB ONE (12:22)
[2024-11-23] MEDS: PALONOSETRON HCL 0.25 MG/5 ML VIAL IVPUSH ONE (13:02)
[2024-11-23] MEDS: LEUCOVORIN INJECTION - 876 MG in DEXTROSE 5%-WATER - 250 ML IVPB ONE (13:02)
[2024-11-23] MEDS: POTASSIUM CHLORIDE TABS 20 MEQ TABLET.ER (FP) PO ONE (15:22)
[2024-11-23] MEDS: FLUOROURACIL 1,000 MG/20 ML VIAL IVPUSH ONE (15:24)
[2024-11-23] MEDS: SODIUM CHLORIDE CP ONE (15:24)
[2024-11-23] MEDS: FLUOROURACIL CP ONE (15:24)
[2024-11-23] MEDS: PORTA CATH FLUSH 10 ML IVPUSH PRN (15:30)
[2024-11-23 15:56] VITALS: PULSE 18; TEMP 98.2
[2024-11-23 16:16] VITALS: BP 126/77; RESP 81
== END 2024-11-23 15:30 | disposition home or self-care (01) ==
LOC: JONCCHEMO 10:39 → J7W 10:40 → JONCCHEMO 15:30
PROVIDERS: ATTEND Internal Medicine Hematology & Oncology
PROC: 3E04305 Introduction of Other Antineoplastic into Central Vein, Percutaneous Approach (ICD-10-PCS; principal; 2024-11-23)
PROC: 3E043GC Introduction of Other Therapeutic Substance into Central Vein, Percutaneous Approach (ICD-10-PCS; 2024-11-23)
DX: Z51.11 Encounter for antineoplastic chemotherapy (principal); C18.9 Malignant neoplasm of colon, unspecified
CPT/HCPCS: 36415; 80053; 83735; 85025; 96366; 96367; 96409; 96413; 96415; G0498; J9263

== ENCOUNTER 2024-11-25 13:54 | Day surgery (SDC) | payer OTHER ==
[~2024-11-25 13:54] MED LIST changes: +POTASSIUM CHLORIDE 20 MEQ in SODIUM CHLORIDE 500 ML IV ONE; -SODIUM CHLORIDE 500 ML IV ONE
[2024-11-25] MEDS: POTASSIUM CHLORIDE 20 MEQ in SODIUM CHLORIDE 500 ML IV ONE (14:11)
[2024-11-25 15:59] VITALS: PULSE 77; TEMP 98
[2024-11-25 16:15] VITALS: BP 110/77; RESP 18
[2024-11-25] MEDS: PORTA CATH FLUSH 10 ML IVPUSH PRN (16:15)
== END 2024-11-25 16:21 | disposition home or self-care (01) ==
LOC: JONCCHEMO 13:54 → J7W 13:54 → JONCCHEMO 16:21
PROVIDERS: ATTEND Internal Medicine Hematology & Oncology
PROC: 3E043GC Introduction of Other Therapeutic Substance into Central Vein, Percutaneous Approach (ICD-10-PCS; principal; 2024-11-25)
DX: C18.9 Malignant neoplasm of colon, unspecified (principal); Z76.89 Persons encountering health services in other specified circumstances
CPT/HCPCS: 96365; 96366

== ENCOUNTER 2024-12-07 10:46 | Day surgery (SDC) | payer OTHER ==
[2024-12-07 11:53] LABS: CHLORIDE 110 mmol/L (98-107); POTASSIUM 3.7 mmol/L (3.5-5.1); SODIUM 140 mmol/L (136-145)
[2024-12-07 11:55] LABS: ALBUMIN 3.3 g/dl (3.4-5.0); ANION GAP 7 mmol/L (4-13); CALCIUM 8.6 mg/dL (8.5-10.1); CO2 23 mmol/L (21-32); GLUCOSE,RANDOM 138 mg/dL (74-106); MAGNESIUM 2.1 mg/dL (1.8-2.4)
[2024-12-07 11:58] LABS: CREATININE 0.8 mg/dL (0.55-1.3); SGOT/AST 41 U/L (15-37); SGPT/ALT 41 U/L (13-61)
[2024-12-07 12:00] LABS: BILIRUBIN,TOTAL 0.6 mg/dL (0.2-1); TOT PROT 7.2 g/dl (6.4-8.2)
[2024-12-07 12:01] LABS: ALK PHOS 101 U/L (45-117)
[2024-12-07 12:03] LABS: ABSOLUTE IMMATURE GRANULOCYTES 0.01 x10^3/uL (0.0-0.031); BASOPHILS # 0.01 x10^3/uL (0.01-0.08); EOSINOPHIL % 1.2 % (0.8-7.0); EOSINOPHILS # 0.04 x10^3/uL (0.04-0.54); HEMOGLOBIN 12.9 g/dL (13.7-17.5); MCHC 33.1 g/dl (32.3-36.5); MEAN CELL VOLUME 83.5 fl (79.0-92.2); MEAN PLT VOLUME 10.6 fl (9.4-12.4); MONOCYTE # 0.59 x10^3/uL (0.30-0.82); MONOCYTE % 17.3 % (5.3-12.2); PLATELET COUNT # 99 x10^3/uL (163-337); RDW 15.6 % (12.1-15.9)
[2024-12-07] MEDS: DEXAMETHASONE SODIUM PHOSPHATE 10 MG, DIPHENHYDRAMINE 25 MG in SODIUM CHLORIDE 100 ML IVPB ONE (12:50)
[2024-12-07] MEDS: SODIUM CHLORIDE 250 ML IV ONE (13:20)
[2024-12-07] MEDS: PALONOSETRON HCL 0.25 MG/5 ML VIAL IVPUSH ONE (13:39)
[2024-12-07] MEDS: WATER IVPB ONE (14:00)
[2024-12-07] MEDS: LEUCOVORIN IVPB ONE (14:00)
[2024-12-07] MEDS: DEXTROSE 5% IVPB ONE (14:00)
[2024-12-07 16:30] VITALS: TEMP 98.2
[2024-12-07] MEDS ORDERED: PORTA CATH FLUSH 10 ML IVPUSH PRN (16:34)
[2024-12-07] MEDS: FLUOROURACIL 1,000 MG/20 ML VIAL IVPUSH ONE (16:45)
[2024-12-07] MEDS: FLUOROURACIL CP ONE (16:45)
[2024-12-07] MEDS: SODIUM CHLORIDE CP ONE (16:45)
[2024-12-07 17:14] VITALS: BP 120/79; PULSE 74; RESP 18
== END 2024-12-07 16:50 | disposition home or self-care (01) ==
LOC: JONCCHEMO 10:46
PROVIDERS: ATTEND Internal Medicine Hematology & Oncology
PROC: 3E043GC Introduction of Other Therapeutic Substance into Central Vein, Percutaneous Approach (ICD-10-PCS; principal; 2024-12-07)
PROC: 3E04305 Introduction of Other Antineoplastic into Central Vein, Percutaneous Approach (ICD-10-PCS; 2024-12-07)
DX: Z51.11 Encounter for antineoplastic chemotherapy (principal); C18.9 Malignant neoplasm of colon, unspecified
CPT/HCPCS: 36415; 80053; 83735; 85025; 96368; 96375; 96413; 96415; G0498; J9263

== ENCOUNTER 2024-12-09 13:40 | Day surgery (SDC) | payer OTHER ==
[2024-12-09] MEDS: SODIUM CHLORIDE 500 ML IV ONE (13:40)
[2024-12-09] MEDS: PORTA CATH FLUSH 10 ML IVPUSH PRN (14:45)
[2024-12-09 14:59] VITALS: RESP 18; TEMP 98.2
[2024-12-09 15:14] VITALS: BP 113/73; PULSE 77
== END 2024-12-09 15:10 | disposition home or self-care (01) ==
LOC: JONCCHEMO 13:40 → J7W 13:40 → JONCCHEMO 15:10
PROVIDERS: ATTEND Internal Medicine Hematology & Oncology
PROC: 3E0437Z Introduction of Electrolytic and Water Balance Substance into Central Vein, Percutaneous Approach (ICD-10-PCS; principal; 2024-12-09)
DX: C18.9 Malignant neoplasm of colon, unspecified (principal); Z76.89 Persons encountering health services in other specified circumstances
CPT/HCPCS: 96360

== ENCOUNTER 2024-12-21 10:02 | Day surgery (SDC) | payer OTHER ==
[2024-12-21 10:54] LABS: HEMATOCRIT 38.8 % (40.1-51.0); MCHC 33.5 g/dl (32.3-36.5); MEAN CELL VOLUME 83.6 fl (79.0-92.2); MEAN PLT VOLUME 11.6 fl (9.4-12.4); PLATELET COUNT 90 x10^3/uL (163-337); RDW 15.3 % (12.1-15.9)
[2024-12-21 11:25] LABS: CHLORIDE 109 mmol/L (98-107); POTASSIUM 3.4 mmol/L (3.5-5.1); SODIUM 141 mmol/L (136-145)
[2024-12-21 11:27] LABS: CALCIUM 8.5 mg/dL (8.5-10.1)
[2024-12-21 11:28] LABS: ALBUMIN 3.2 g/dl (3.4-5.0); ANION GAP 7 mmol/L (4-13); BLOOD UREA NITROGEN 6.3 mg/dL (7-18); CO2 25 mmol/L (21-32); GLUCOSE,RANDOM 120 mg/dL (74-106)
[2024-12-21] MEDS: SODIUM CHLORIDE 250 ML IV ONE (11:30)
[2024-12-21 11:31] LABS: CREATININE 0.6 mg/dL (0.55-1.3); SGOT/AST 35 U/L (15-37); SGPT/ALT 37 U/L (13-61)
[2024-12-21 11:32] LABS: BILIRUBIN,TOTAL 0.6 mg/dL (0.2-1); TOT PROT 7.3 g/dl (6.4-8.2)
[2024-12-21 11:34] LABS: ALK PHOS 113 U/L (45-117)
[2024-12-21] MEDS: POTASSIUM CHLORIDE TABS 20 MEQ TABLET.ER (FP) PO ONE (12:23)
[2024-12-21] MEDS: PALONOSETRON HCL 0.25 MG/5 ML VIAL IVPUSH ONE (12:23)
[2024-12-21] MEDS: DEXAMETHASONE SODIUM PHOSPHATE 10 MG, DIPHENHYDRAMINE 25 MG in SODIUM CHLORIDE 100 ML IVPB ONE (12:25)
[2024-12-21] MEDS: DEXTROSE 5% IVPB ONE (13:10)
[2024-12-21] MEDS: WATER IVPB ONE (13:10)
[2024-12-21] MEDS: LEUCOVORIN IVPB ONE (13:10)
[2024-12-21] MEDS: FLUOROURACIL 1,000 MG/20 ML VIAL IVPUSH ONE (15:48)
[2024-12-21] MEDS: SODIUM CHLORIDE CP ONE (15:49)
[2024-12-21] MEDS: FLUOROURACIL CP ONE (15:49)
[2024-12-21 16:41] VITALS: BP 120/74; PULSE 74; RESP 20; TEMP 97.9
== END 2024-12-21 16:00 | disposition home or self-care (01) ==
LOC: JONCCHEMO 10:02
PROVIDERS: ATTEND Internal Medicine Hematology & Oncology
DX: Z51.11 Encounter for antineoplastic chemotherapy (principal); C18.9 Malignant neoplasm of colon, unspecified
CPT/HCPCS: 36415; 80053; 83735; 85025; 96367; 96368; 96375; 96411; 96413; 96415; G0498; J9263

== ENCOUNTER 2024-12-23 15:03 | Day surgery (SDC) | payer OTHER ==
[2024-12-23] MEDS: SODIUM CHLORIDE 500 ML IV ONE (14:45)
[2024-12-23] MEDS: KCL 10 MEQ IVPB 10 MEQ/100 ML INFUS.BAG IVPB SCH (15:23)
[2024-12-23 16:04] VITALS: RESP 20; TEMP 98.6
[2024-12-23 17:32] VITALS: BP 110/67; PULSE 84
[2024-12-23] MEDS: PORTA CATH FLUSH 10 ML IVPUSH PRN (17:32)
== END 2024-12-23 17:33 | disposition home or self-care (01) ==
LOC: JONCCHEMO 15:03
PROVIDERS: ATTEND Internal Medicine Hematology & Oncology
PROC: 3E043GC Introduction of Other Therapeutic Substance into Central Vein, Percutaneous Approach (ICD-10-PCS; principal; 2024-12-23)
DX: C19 Malignant neoplasm of rectosigmoid junction (principal); Z76.89 Persons encountering health services in other specified circumstances
CPT/HCPCS: 96365; 96366

== ENCOUNTER 2025-04-18 06:12 | Day surgery (SDC) | payer OTHER ==
[2025-04-18 08:52] VITALS: RESP 20
[2025-04-18 09:07] LABS: ABSOLUTE IMMATURE GRANULOCYTES 0.10 x10^3/uL (0.0-0.031); BASOPHILS # 0.02 x10^3/uL (0.01-0.08); EOSINOPHIL % 1.5 % (0.8-7.0); EOSINOPHILS # 0.11 x10^3/uL (0.04-0.54); INR 1.08 (0.83-1.09); MCHC 33.3 g/dl (32.3-36.5); MEAN CELL VOLUME 83.5 fl (79.0-92.2); MEAN PLT VOLUME 10.7 fl (9.4-12.4); MONOCYTE # 0.57 x10^3/uL (0.30-0.82); MONOCYTE % 7.7 % (5.3-12.2); PROTHROMBIN TIME (PATIENT) 11.9 SEC (9.7-13.0); RDW 13.2 % (12.2-16.1)
[2025-04-18 09:15] LABS: CO2 28.0 mmol/L (21-32); GLUCOSE,RANDOM 98.0 mg/dL (74-106)
[2025-04-18 09:18] LABS: CREATININE 0.7 mg/dL (0.55-1.3); SGOT/AST 24.0 U/L (15-37); SGPT/ALT 42.0 U/L (13-61)
[2025-04-18 09:20] LABS: TOT PROT 7.5 g/dl (6.4-8.2)
[2025-04-18 09:21] LABS: ALK PHOS 96.0 U/L (45-117)
[2025-04-18] MEDS ORDERED: FENTANYL CITRATE/PF 50 MCG/ML VIAL ONE (11:24)
[2025-04-18] MEDS ORDERED: MIDAZOLAM HCL 2 MG/2 ML SINGLE DOSE VIAL ONE (11:24)
[2025-04-18 13:08] VITALS: BP 122/72; PULSE 60
[2025-04-18 13:14] VITALS: TEMP 98
== END 2025-04-18 12:42 | disposition home or self-care (01) ==
LOC: JRADIR 06:12
PROVIDERS: ATTEND Internal Medicine Hematology & Oncology
PROC: 0BBJ3ZX Excision of Left Lower Lung Lobe, Percutaneous Approach, Diagnostic (ICD-10-PCS; principal; 2025-04-18)
DX: C19 Malignant neoplasm of rectosigmoid junction (principal); D38.1 Neoplasm of uncertain behavior of trachea, bronchus and lung; Z53.8 Procedure and treatment not carried out for other reasons
CPT/HCPCS: 32408; 36415; 80053; 85025; 85610